=== PATIENT | male | born 1995 | race Caucasian/White ===

== ENCOUNTER 2021-11-26 08:30 | Emergency (ER) | payer MEDICAID, OTHER ==
[~2021-11-26] VITALS: Ht 180.3 cm; Wt 136.4 kg
[2021-11-26] MEDS ORDERED: ACETAMINOPHEN TAB 650MG DOSE (2X325MG) PO ONE (09:00)
[2021-11-26] MEDS ORDERED: GABA600T4 PO (09:18)
[2021-11-26 10:44] VITALS: BP 135/77
== END 2021-11-26 10:46 | disposition home or self-care (01) ==
LOC: M ED 08:30 → EDBD 08:30 → M ED 10:46
DX: J09.X9 Influenza due to identified novel influenza A virus with other manifestations (principal)